=== PATIENT | female | born 1980 | race Caucasian/White ===

== ENCOUNTER 2016-11-04 11:55 | Emergency (ER) | payer MEDICAID, OTHER ==
[2016-11-04 11:55] VITALS: BMI 38.9
[2016-11-04 12:09] VITALS: TEMP 98.5
[2016-11-04 13:33] LABS: RBC URINE 2 /hpf (0-3); URINE BILIRUBIN NEGATIVE (NEGATIVE); URINE BLOOD NEGATIVE (NEGATIVE); URINE COLOR Yellow (YELLOW); URINE GLUCOSE (UA) NORMAL (Normal); URINE KETONE NEGATIVE (NEGATIVE); URINE LEUKOCYTE ESTERASE 1+ Leu/uL (Negative); URINE PROTEIN NEGATIVE (NEGATIVE); URINE UROBILINOGEN NORMAL mg/dL (0.2-1.0); WBC URINE 2 /hpf (0-5)
[2016-11-04] MEDS ORDERED: cefTRIAXone (Rocephin) 250 mg Inj IM STA (14:53)
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
[2016-11-04 15:18] VITALS: BP 124/75; PULSE 75; RESP 18
[2016-11-04 16:18] VITALS: O2SAT 99
== END 2016-11-04 15:25 | disposition home or self-care (01) ==
LOC: C.ER 11:55
DX: Z04.41 Encounter for examination and observation following alleged adult rape (principal)
CPT/HCPCS: 81001; 84703; 96372; 99285; J0696